=== PATIENT | female | born 1980 | race Two or more races ===

== ENCOUNTER 2018-01-09 17:00 | Emergency (ER) | payer OTHER ==
[~2018-01-09] VITALS: Ht 157.5 cm; Wt 88.0 kg
[2018-01-09] MEDS ORDERED: ATENOLOL25 MG PO (17:07)
[2018-01-09] MEDS ORDERED: LISINOPRIL10 MG PO (17:07)
== END 2018-01-09 20:15 | disposition home or self-care (01) ==
LOC: ER 17:00
DX: M75.52 Bursitis of left shoulder (principal)

== ENCOUNTER 2018-06-06 04:55 | Emergency (ER) | payer OTHER ==
[~2018-06-06] VITALS: Ht 157.5 cm; Wt 84.8 kg
[~2018-06-06 04:55] MED LIST: ATENOLOL25 MG PO; LISINOPRIL10 MG PO
[2018-06-06] MEDS ORDERED: PRINIVIL20 MG PO (05:14)
== END 2018-06-06 10:03 | disposition home or self-care (01) ==
LOC: ER 04:55
DX: K21.9 Gastro-esophageal reflux disease without esophagitis (principal); K29.70 Gastritis, unspecified, without bleeding